=== PATIENT | male | born 1985 | race Asian ===

== ENCOUNTER 2021-04-25 14:39 | Emergency (ER) | payer SELFPAY ==
[2021-04-25 15:10] VITALS: BMI 25.8
[2021-04-25] MEDS ORDERED: ACETAMINOPHEN 500 MG TABLET (FP) PO ONE (16:25)
[2021-04-25 17:21] VITALS: BP 133/88; PULSE 95; TEMP 99.8
== END 2021-04-25 17:30 | disposition home or self-care (01) ==
LOC: JER 14:39
DX: R05.1 Acute cough (principal); J02.9 Acute pharyngitis, unspecified; M79.10 Myalgia, unspecified site; Z11.52 Encounter for screening for COVID-19
CPT/HCPCS: 87651; 87804; 87807; 99283-25; C9803; U0003; U0005

== ENCOUNTER 2024-04-25 22:10 | Emergency (ER) | payer OTHER ==
[2024-04-25 22:15] VITALS: BMI 27.6
[2024-04-25] MEDS ORDERED: FAMOTIDINE 20 MG/50 ML IVPB 20 MG/50 ML MG IVPB ONE (23:04)
[2024-04-25] MEDS ORDERED: ACETAMINOPHEN 325 MG TABLET (FP) ONE (23:04)
[2024-04-25] MEDS: ACETAMINOPHEN 500 MG TABLET (FP) PO ONE (23:09)
[2024-04-25] MEDS: FAMOTIDINE 20 MG/50 ML IVPB 20 MG/50 ML MG IVPB ONE (23:09)
[2024-04-25 23:54] LABS: BASO % 0.7 % (0-2.0); HEMOGLOBIN 15.8 GM/dL (11.7-16.9); LYMPH % 34.3 % (8-40); MCH 29.9 pg (25.7-33.7); MCHC 33.6 g/dl (32.0-35.9); MEAN CELL VOLUME 89.2 fl (80-96); MEAN PLT VOLUME 11.1 fl (7.5-11.1); MONO % 8.6 % (3.8-10.2); NEUT % 54.4 % (42.8-82.8); PLATELET COUNT 176 10^3/uL (134-434); RBC 5.27 M/mm3 (4.00-5.60); RDW 13.7 % (11.9-15.9); WHITE BLOOD COUNT 9.6 K/mm3 (4.0-10.0)
[2024-04-25 23:58] LABS: INR 0.92 (0.83-1.09); PROTHROMBIN TIME (PATIENT) 10.6 SEC (9.7-13.0)
[2024-04-26] LABS: ACTIVATED PTT 32.4 SECONDS (25.2-36.5)
[2024-04-26 00:11] LABS: POTASSIUM 3.8 mmol/L (3.5-5.1)
[2024-04-26 00:13] LABS: ALBUMIN 3.7 g/dl (3.4-5.0); CALCIUM 9.5 mg/dL (8.5-10.1)
[2024-04-26 00:14] LABS: BLOOD UREA NITROGEN 16.4 mg/dL (7-18)
[2024-04-26 00:17] LABS: CREATININE 1.1 mg/dL (0.55-1.3)
[2024-04-26 00:18] LABS: BILIRUBIN,TOTAL 0.3 mg/dL (0.2-1); TOT PROT 7.1 g/dl (6.4-8.2)
[2024-04-26] MEDS ORDERED: KETOROLAC TROMETHAMINE 30 MG/1 ML VIAL ONE (00:57)
[2024-04-26] MEDS: KETOROLAC TROMETHAMINE 30 MG/1 ML VIAL IVPUSH ONE (01:02)
[2024-04-26 03:35] VITALS: BP 116/62; PULSE 79; RESP 18; TEMP 98
== END 2024-04-26 03:43 | disposition home or self-care (01) ==
LOC: JER 22:10
PROC: 3E033GC Introduction of Other Therapeutic Substance into Peripheral Vein, Percutaneous Approach (ICD-10-PCS; principal; 2024-04-25)
PROC: 3E0333Z Introduction of Anti-inflammatory into Peripheral Vein, Percutaneous Approach (ICD-10-PCS; 2024-04-25)
DX: R07.1 Chest pain on breathing (principal)
CPT/HCPCS: 36415; 71046-TC-FY; 80053; 84484; 85025; 85610; 85730; 86850; 86900; 86901; 93005; 93010; 99285-25